=== PATIENT | female | born 1955 | race Caucasian/White ===

== ENCOUNTER → 2016-08-10 | Outpatient (CLI) | payer BC ==
--- NOTE | 2016-08-10 08:59 | MA ---
Screening Digital Mammogram Clinical Indications: Routine screening. Sister with breast cancer at age 60. Technique: Standard cephalocaudal and mediolateral oblique projections were obtained. This examinat ion was processed by the [employer] computer aided detection system. Comparison: March 2015, March 2014, December 2012 and December 2011. Breast density: D; The breast tissue is extremely dense. This may lower the sensitivity of mammograph y. Findings: CAD was reviewed. No suspicious findings are identified. Impression: Negative mammogram. BI-RADS 1. Recommendation: Routine screening is recommended in one year, as long as physical examination is mariposa ign in this patient with extremely dense breast parenchyma.Considering the patient's extremely dense breast parenchyma, she might consider using screening whole breast ultrasound as a complement to aston al screening mammography. [facility] will send a result letter to the patient. Negative mammography should not preclude additional workup of a clinically suspicious finding. The patient's information is entered into a reminder system with a target due date for her next mammo gram.
== END ==
LOC: FIMAGING 07:47
DX: Z12.31 Encounter for screening mammogram for malignant neoplasm of breast (principal); Z80.3 Family history of malignant neoplasm of breast
CPT/HCPCS: G0202

== ENCOUNTER → 2016-09-15 | Outpatient (CLI) | payer BC ==
--- NOTE | 2016-09-15 18:55 | US ---
Thyroid Sonography Clinical History: 60-year-old female with a multinodular goiter, not currently on thyroid medication. ICD10 Diagnostic Code: E04.9. Technique: A linear 12 MHz transducer was used to sonographically evaluate each lobe of the thyroid g land and the isthmus. Color Doppler was also used. Cursory evaluation of the cervical lymph node dhaval ns was also performed. Comparison Study: None currently available. Findings: Right Thyroid Lobe: This measures 5.5 x 1.9 x 2.3 cm and is diffusely heterogeneous and hyperemic wit h multinodularity. A dominant nodule is seen in the lower pole with a faint hypoechoic halo and areas of heterogeneity and some punctate echogenicity. This measures 3.1 x 1.9 x 1.8 cm. Because this is a dominant nodule, it may be worthwhile to consider ultrasound-guided fine-needle aspiration biopsy. Isthmus: This is mildly thickened, measuring 0.5 cm in AP diameter. Left Thyroid Lobe: This measures 5.4 x 2.5 x 1.9 cm and is heterogeneous and hyperemic similar to the other side, and in the superior pole, there is a 5 x 5 x 5 mm rounded isoechoic nodule with peripher al hypoechoic halo, which does not warrant biopsy at this time. Cursory evaluation of the cervical lymph node chains does not reveal any pathologically-enlarged suzy opathy. Impression: Multinodular goiter, with a dominant nodule in the lower pole of the right lobe. Consider ultrasound-guided fine-needle aspiration biopsy for histologic sampling.
== END ==
LOC: BMCIMAGING 09:23
PROVIDERS: ATTEND Internal Medicine Endocrinology, Diabetes & Metabolism
DX: E04.2 Nontoxic multinodular goiter (principal)
CPT/HCPCS: 76536-PO

== ENCOUNTER → 2016-10-25 | Outpatient (CLI) | payer BC | LOC: FIMAGING 08:14 | PROVIDERS: ATTEND Midwife | DX: R93.8 Abnormal findings on diagnostic imaging of other specified body structures (principal); D25.9 Leiomyoma of uterus, unspecified; Z90.721 Acquired absence of ovaries, unilateral ==

== ENCOUNTER → 2017-01-20 | Outpatient (CLI) | payer BC | LOC: BMCIMAGING 08:05 | PROVIDERS: ATTEND Orthopaedic Surgery | DX: M19.041 Primary osteoarthritis, right hand (principal); M19.042 Primary osteoarthritis, left hand ==

== ENCOUNTER → 2017-02-09 | Outpatient (CLI) | payer BC | LOC: FIMAGING 07:43 | PROVIDERS: ATTEND Obstetrics & Gynecology | DX: D25.1 Intramural leiomyoma of uterus (principal) ==

== ENCOUNTER → 2017-06-22 | Outpatient (CLI) | payer BC | LOC: BMCIMAGING 10:01 | PROVIDERS: ATTEND Internal Medicine Endocrinology, Diabetes & Metabolism | DX: Z13.820 Encounter for screening for osteoporosis (principal); M81.0 Age-related osteoporosis without current pathological fracture ==

== ENCOUNTER → 2017-09-18 | Outpatient (CLI) | payer BC | LOC: FIMAGING 08:22 | PROVIDERS: ATTEND Obstetrics & Gynecology | DX: Z12.31 Encounter for screening mammogram for malignant neoplasm of breast (principal); Z80.3 Family history of malignant neoplasm of breast ==

== ENCOUNTER → 2017-11-06 | Outpatient (CLI) | payer BC, OTHER | LOC: BMCIMAGING 07:19 | PROVIDERS: ATTEND Internal Medicine Endocrinology, Diabetes & Metabolism | DX: E04.2 Nontoxic multinodular goiter (principal) | CPT/HCPCS: 76536-PO ==

== ENCOUNTER → 2018-07-16 | Outpatient (CLI) | payer OTHER | LOC: FIMAGING 09:48 | PROVIDERS: ATTEND Internal Medicine Endocrinology, Diabetes & Metabolism | DX: Z13.820 Encounter for screening for osteoporosis (principal); M81.0 Age-related osteoporosis without current pathological fracture ==

== ENCOUNTER → 2019-01-25 | Outpatient (CLI) | payer OTHER | LOC: FIMAGING 11:30 ==